=== PATIENT | male | born 1960 | race Two or more races ===

== ENCOUNTER 2021-05-21 13:18 | Inpatient (IN) | payer MEDICAID, OTHER ==
[~2021-05-21] VITALS: Ht 180.3 cm; Wt 77.6 kg
[2021-05-21 15:04] LABS: HEMATOCRIT. 41.3 % (42.0-52.0); HEMOGLOBIN. 13.9 g/dL (14.0-18.0); MEAN CORPUSCULAR HEMOGLOBIN 29.3 pg (28.0-32.0); MEAN CORPUSCULAR VOLUME 87.1 fL (80.0-94.0); MEAN PLATELET VOLUME 8.2 fl (7.4-10.4); RED BLOOD CELL COUNT 4.74 mill/uL (4.7-6.1); RED CELL DISTRIBUTION WIDTH 15.7 % (11.6-14.6)
[2021-05-21 15:10] LABS: CHLORIDE 106 mEq/L (98-107)
[2021-05-21 15:19] LABS: CREATINE KINASE 225 IU/L (39-308)
[2021-05-21 15:30] LABS: PLATELET 47 x1000/uL (130-400)
[2021-05-21] MEDS ORDERED: SODIUM CHLORIDE 0.9% 1,000 ML IV ONE (16:00)
[2021-05-21 19:20] LABS: PLATELET ESTIMATE MARKEDLY DECREASED
[2021-05-21] MEDS ORDERED: DEXTROSE 50% WATER 50ML SYRINGE IV PRN (21:15)
[2021-05-21] MEDS ORDERED: HYDROCODONE/ACETAMINOPHEN 5/325MG TABLET PO PRN (21:15)
[2021-05-21] MEDS ORDERED: ACETAMINOPHEN 325MG TABLET PO PRN ×2 (21:15)
[2021-05-21] MEDS ORDERED: GUAIFENESIN 200MG/10ML SUGAR FREE UDC PO PRN (21:15)
[2021-05-21] MEDS ORDERED: ONDANSETRON HCL 4MG/2ML INJ IV PRN (21:15)
[2021-05-21] MEDS ORDERED: CLONIDINE 0.1MG TABLET PO PRN (21:15)
[2021-05-21] MEDS ORDERED: MAGNESIUM/ALUMINUM HYDROXIDE/SIMETHICONE 30ML UDC PO PRN (21:15)
[2021-05-22] MEDS: LORAZEPAM 2MG/ML CPJ IV PRN ×2 (01:52→08:37)
[2021-05-22] MEDS: BLOOD SUGAR DIAGNOSTIC STRIP TEST SCH ×4 (06:19→20:48)
[2021-05-22 06:20] LABS: CHLORIDE 101 mEq/L (98-107)
[2021-05-22] MEDS: INSULIN LISPRO 100 UNITS/ML SUBCUT SCH ×4 (06:20→20:48)
[2021-05-22 06:26] LABS: HEMATOCRIT. 38.9 % (42.0-52.0); HEMOGLOBIN. 13.1 g/dL (14.0-18.0); MEAN CORPUSCULAR HEMOGLOBIN 29.5 pg (28.0-32.0); MEAN CORPUSCULAR VOLUME 87.8 fL (80.0-94.0); MEAN PLATELET VOLUME 8.8 fl (7.4-10.4); RED BLOOD CELL COUNT 4.43 mill/uL (4.7-6.1); RED CELL DISTRIBUTION WIDTH 15.9 % (11.6-14.6)
[2021-05-22 06:27] LABS: PHOSPHORUS 2.4 mg/dL (2.5-4.9)
[2021-05-22 06:28] LABS: TOTAL IRON BINDING CAPACITY 296 ug/dL (250-450)
[2021-05-22 06:30] LABS: PLATELET 41 x1000/uL (130-400)
[2021-05-22 07:13] LABS: FOLIC ACID (FOLATE) SERUM 9.5 ng/mL (>5.38)
[2021-05-22 10:33] LABS: PLATELET ESTIMATE MARKEDLY DECREASED
[2021-05-22] MEDS ORDERED: NALOXONE HCL 0.4MG/ML VIAL IV PRN (11:30)
[2021-05-22 11:34] VITALS: BP 139/78
[2021-05-22] MEDS ORDERED: ATOR10TA69 MT (11:43)
[2021-05-22] MEDS ORDERED: ASPI-1497 MT (11:43)
[2021-05-22] MEDS ORDERED: METF-414 MT (11:43)
[2021-05-22] MEDS ORDERED: POTASSIUM CHLORIDE 20MEQ TABLET SR PO SCH (12:15)
[2021-05-22 12:30] VITALS: BP 139/78
[2021-05-22 14:38] LABS: HEPATITIS B SURFACE AB 15.3 mIU/mL
[2021-05-22] MEDS ORDERED: POTASSIUM-SODIUM PHOSPHATE POWDER PACKET PO NR (15:00)
[2021-05-22] MEDS ORDERED: INFLUENZA VACCINE 05/PF 0.5 ML SYRINGE IM ONE (15:00)
[2021-05-22 15:45] LABS: *AMPHETAMINES SCREEN URINE NEGATIVE (NEGATIVE); *BARBITURATES SCREEN URINE NEGATIVE (NEGATIVE); *BENZODIAZEPINES SCREEN URINE NEGATIVE (NEGATIVE); *COCAINE SCREEN URINE NEGATIVE (NEGATIVE); CANNABINOID URINE SCREEN NEGATIVE (NEGATIVE); METHADONE URINE SCREEN NEGATIVE (NEGATIVE); OPIATES URINE SCREEN PRESUMTIVE POSITIVE (NEGATIVE); PHENCYCLIDINE URINE SCREEN NEGATIVE (NEGATIVE)
[2021-05-22] MEDS ORDERED: MAGNESIUM 2 G PREMIX 50 ML IV NR (16:00)
[2021-05-22] MEDS ORDERED: FOLIC ACID 1 MG, THIAMINE HCL 100 MG, MVI, ADULT NO.1 10 ML in DEXTROSE 5% WATER 1,000 ML IV SCH ×4 (16:00)
[2021-05-22] MEDS: PANTOPRAZOLE SODIUM 40 MG/VIAL IV SCH (18:34)
[2021-05-22 20:00] VITALS: BP 126/71
[2021-05-22] MEDS ORDERED: SODIUM CHLORIDE 0.9% 1,000 ML IV SCH (20:15)
[2021-05-23] VITALS: BP 122/81
[2021-05-23 04:00] VITALS: BP 115/70
[2021-05-23 06:49] LABS: INR 1.1; PROTHROMBIN TIME 12.1 sec (9.6-11.0)
[2021-05-23] MEDS: PANTOPRAZOLE SODIUM 40 MG/VIAL IV SCH ×2 (06:49→18:16)
[2021-05-23] MEDS: BLOOD SUGAR DIAGNOSTIC STRIP TEST SCH ×4 (06:49→21:00)
[2021-05-23 06:54] LABS: BASOPHILS % 2.9 % (0.0-2.0); HEMATOCRIT. 38.5 % (42.0-52.0); LYMPHOCYTES % 17.7 % (20.0-50.0); MEAN CORPUSCULAR HEMOGLOBIN 29.6 pg (28.0-32.0); MEAN CORPUSCULAR VOLUME 87.5 fL (80.0-94.0); MEAN PLATELET VOLUME 9.4 fl (7.4-10.4); NEUTROPHILS % 69.4 % (40.0-76.0); RED BLOOD CELL COUNT 4.39 mill/uL (4.7-6.1); RED CELL DISTRIBUTION WIDTH 15.4 % (11.6-14.6)
[2021-05-23 07:13] LABS: CHLORIDE 99 mEq/L (98-107)
[2021-05-23 07:32] LABS: PHOSPHORUS 0.8 mg/dL (2.5-4.9)
[2021-05-23 07:37] LABS: PLATELET 38 x1000/uL (130-400)
[2021-05-23 07:48] VITALS: BP 118/70
[2021-05-23] MEDS: INSULIN LISPRO 100 UNITS/ML SUBCUT SCH ×4 (07:50→21:00)
[2021-05-23] MEDS ORDERED: SODIUM PHOS,M-BASIC-D-BASIC 30 MM in DEXT 5% WATER 500 ML IV NR (09:00)
[2021-05-23] MEDS ORDERED: LOPERAMIDE HCL 2MG CAPSULE PO NR (09:30)
[2021-05-23] MEDS ORDERED: LOPERAMIDE HCL 2MG CAPSULE PO PRN (12:00)
[2021-05-23 12:22] VITALS: BP 112/75
[2021-05-23 15:40] VITALS: BP 123/82
[2021-05-23 20:00] VITALS: BP 129/90
[2021-05-24] VITALS: BP 125/87
[2021-05-24 04:00] VITALS: BP 139/88
[2021-05-24] MEDS: PANTOPRAZOLE SODIUM 40 MG/VIAL IV SCH ×2 (06:02→18:35)
[2021-05-24] MEDS: BLOOD SUGAR DIAGNOSTIC STRIP TEST SCH ×4 (06:23→20:55)
[2021-05-24] MEDS: INSULIN LISPRO 100 UNITS/ML SUBCUT SCH ×4 (07:50→20:55)
[2021-05-24 08:00] VITALS: BP 130/78
[2021-05-24 12:00] VITALS: BP 127/75
[2021-05-24] MEDS: LORAZEPAM 2MG/ML CPJ IV PRN ×2 (14:02→18:52)
[2021-05-24 16:00] VITALS: BP 131/77
[2021-05-24 17:48] LABS: BASOPHILS % 0.8 % (0.0-2.0); HEMATOCRIT. 38.9 % (42.0-52.0); HEMOGLOBIN. 13.4 g/dL (14.0-18.0); LYMPHOCYTES % 14.7 % (20.0-50.0); MEAN CORPUSCULAR HEMOGLOBIN 30.2 pg (28.0-32.0); MEAN CORPUSCULAR VOLUME 87.6 fL (80.0-94.0); MEAN PLATELET VOLUME 9.2 fl (7.4-10.4); NEUTROPHILS % 73.5 % (40.0-76.0); RED BLOOD CELL COUNT 4.44 mill/uL (4.7-6.1); RED CELL DISTRIBUTION WIDTH 15.4 % (11.6-14.6)
[2021-05-24 18:36] LABS: CHLORIDE 100 mEq/L (98-107)
[2021-05-24 18:42] LABS: PHOSPHORUS 2.2 mg/dL (2.5-4.9)
[2021-05-24 20:00] VITALS: BP 120/78
[2021-05-24] MEDS ORDERED: POTASSIUM CHLORIDE 20MEQ TABLET SR PO SCH (20:00)
[2021-05-24] MEDS ORDERED: LORAZEPAM 2MG/ML CPJ IV NR (20:14)
[2021-05-24] MEDS ORDERED: POTASSIUM CHLORIDE 20MEQ TABLET SR PO NR (20:15)
[2021-05-24] MEDS ORDERED: POTASSIUM CHLORIDE INJ 40 MEQ in DEXT 5% WATER 250 ML IV ONE (21:30)
[2021-05-24] MEDS ORDERED: MORPHINE SULFATE 2 MG/ML CPJ (NOT FOR IM USE) IV PRN (21:45)
[2021-05-24] MEDS ORDERED: HALOPERIDOL LACTATE 5MG/ML VIAL IM NR (22:30)
[2021-05-24] MEDS ORDERED: LORAZEPAM 2MG/ML CPJ IV PRN (22:30)
[2021-05-24] MEDS: KCL 20MEQ/100ML PREMIX 100 ML IV SCH (22:46)
[2021-05-24] MEDS ORDERED: DIAZEPAM 5 MG/ML 2ML CPJ IV NR (23:30)
[2021-05-24] MEDS ORDERED: DIAZEPAM 5 MG/ML 2ML CPJ IV PRN (23:45)
[2021-05-25] VITALS (7 sets, daily range): BP systolic 104–144; BP diastolic 65–87
[2021-05-25] MEDS ORDERED: POTASSIUM CHLORIDE 20MEQ TABLET SR PO NR
[2021-05-25] MEDS ORDERED: POTASSIUM CHLORIDE 20MEQ TABLET SR PO SCH
[2021-05-25] MEDS: KCL 20MEQ/100ML PREMIX 100 ML IV SCH (00:03)
[2021-05-25] MEDS ORDERED: POTASSIUM CHLORIDE INJ 40 MEQ in DEXT 5% WATER 250 ML IV ONE (01:30)
[2021-05-25] MEDS: PANTOPRAZOLE SODIUM 40 MG/VIAL IV SCH ×2 (05:30→19:47)
[2021-05-25] MEDS: BLOOD SUGAR DIAGNOSTIC STRIP TEST SCH ×4 (06:52→20:45)
[2021-05-25 07:03] LABS: BASOPHILS % 1.2 % (0.0-2.0); HEMATOCRIT. 38.7 % (42.0-52.0); HEMOGLOBIN. 13.4 g/dL (14.0-18.0); LYMPHOCYTES % 18.3 % (20.0-50.0); MEAN CORPUSCULAR HEMOGLOBIN 30.2 pg (28.0-32.0); MEAN CORPUSCULAR VOLUME 87.4 fL (80.0-94.0); MEAN PLATELET VOLUME 9.6 fl (7.4-10.4); MONOCYTES % 11.4 % (2.0-8.0); NEUTROPHILS % 66.1 % (40.0-76.0); PLATELET 52 x1000/uL (130-400); RED BLOOD CELL COUNT 4.43 mill/uL (4.7-6.1); RED CELL DISTRIBUTION WIDTH 15.6 % (11.6-14.6)
[2021-05-25 07:06] LABS: CHLORIDE 105 mEq/L (98-107)
[2021-05-25 07:09] LABS: INR 1.1; PROTHROMBIN TIME 11.4 sec (9.6-11.0)
[2021-05-25] MEDS: INSULIN LISPRO 100 UNITS/ML SUBCUT SCH ×4 (07:26→20:48)
[2021-05-25 09:59] LABS: PLATELET 42 x1000/uL (130-400)
[2021-05-25] MEDS: POTASSIUM CHLORIDE 20MEQ/PACKET PO SCH ×2 (10:15→13:30)
[2021-05-25 13:07] LABS: HIV SCREEN 4G Non Reactive (Non Reactive)
[2021-05-25] MEDS: DIAZEPAM 5 MG/ML 2ML CPJ IV PRN (19:48)
[2021-05-25 21:30] LABS: HEPATITIS B SURFACE ANTIGEN NEGATIVE
[2021-05-26 04:00] VITALS: BP 116/78
[2021-05-26] MEDS: PANTOPRAZOLE SODIUM 40 MG/VIAL IV SCH ×2 (05:21→17:33)
[2021-05-26 06:12] LABS: BASOPHILS % 2.7 % (0.0-2.0); EOSINOPHILS % 6.9 % (0.0-5.0); HEMATOCRIT. 37.7 % (42.0-52.0); HEMOGLOBIN. 12.9 g/dL (14.0-18.0); LYMPHOCYTES % 25.4 % (20.0-50.0); MEAN CORPUSCULAR HEMOGLOBIN 30.1 pg (28.0-32.0); MEAN CORPUSCULAR VOLUME 88.2 fL (80.0-94.0); MEAN PLATELET VOLUME 8.6 fl (7.4-10.4); MONOCYTES % 12.2 % (2.0-8.0); NEUTROPHILS % 52.8 % (40.0-76.0); PLATELET 69 x1000/uL (130-400); RED BLOOD CELL COUNT 4.28 mill/uL (4.7-6.1); RED CELL DISTRIBUTION WIDTH 15.7 % (11.6-14.6)
[2021-05-26 06:35] LABS: CHLORIDE 106 mEq/L (98-107)
[2021-05-26 06:43] LABS: PHOSPHORUS 2.8 mg/dL (2.5-4.9)
[2021-05-26] MEDS: BLOOD SUGAR DIAGNOSTIC STRIP TEST SCH ×4 (07:01→21:00)
[2021-05-26] MEDS: INSULIN LISPRO 100 UNITS/ML SUBCUT SCH ×4 (07:50→21:00)
[2021-05-26 08:00] VITALS: BP 127/86
[2021-05-26] MEDS ORDERED: THIAMINE HCL 100MG TABLET PO SCH (09:00)
[2021-05-26] MEDS ORDERED: FOLIC ACID 1MG TABLET PO SCH (09:00)
[2021-05-26] MEDS ORDERED: POTASSIUM CHLORIDE 20MEQ TABLET SR PO SCH (09:00)
[2021-05-26 12:00] VITALS: BP 120/77
[2021-05-26] MEDS: DIAZEPAM 5 MG/ML 2ML CPJ IV PRN (14:07)
[2021-05-26] MEDS ORDERED: IMOD PO (14:26)
[2021-05-26] MEDS ORDERED: ASPI-1497 MT (14:26)
[2021-05-26] MEDS ORDERED: THIA100T72 PO (14:26)
[2021-05-26] MEDS ORDERED: ATOR10TA69 MT (14:26)
[2021-05-26] MEDS ORDERED: FOLI-43 PO (14:26)
[2021-05-26] MEDS ORDERED: METF-414 MT (14:26)
[2021-05-26] MEDS ORDERED: TOPUD PO (14:27)
[2021-05-26 16:00] VITALS: BP 113/82
[2021-05-26 20:00] VITALS: BP 130/89
[2021-05-27] VITALS: BP 121/83
[2021-05-27 02:26] VITALS: BP 101/63
[2021-05-27 03:56] VITALS: BP 101/63
[2021-05-27] MEDS: PANTOPRAZOLE SODIUM 40 MG/VIAL IV SCH (05:25)
[2021-05-27] MEDS: BLOOD SUGAR DIAGNOSTIC STRIP TEST SCH (06:23)
== END 2021-05-27 10:17 | disposition home or self-care (01) | DRG 40 ==
LOC: ER 13:35 → EDBEDREQ 16:37 → MICUSO 20:18 → EDBEDREQ 20:31 → EDBEDREQTM 20:31 → SUPCPDRO 21:04 → 6WST 05-22 11:13
PROVIDERS: ADMIT Internal Medicine; ATTEND Internal Medicine
DX: G95.20 Unspecified cord compression (principal); D61.818 Other pancytopenia; E11.40 Type 2 diabetes mellitus with diabetic neuropathy, unspecified; I82.409 Acute embolism and thrombosis of unspecified deep veins of unspecified lower extremity; I10 Essential (primary) hypertension; F10.239 Alcohol dependence with withdrawal, unspecified; D50.9 Iron deficiency anemia, unspecified; G82.20 Paraplegia, unspecified; I99.8 Other disorder of circulatory system; K76.0 Fatty (change of) liver, not elsewhere classified; J32.0 Chronic maxillary sinusitis; M43.16 Spondylolisthesis, lumbar region; M48.061 Spinal stenosis, lumbar region without neurogenic claudication; Z20.822 Contact with and (suspected) exposure to COVID-19; K82.8 Other specified diseases of gallbladder; R19.7 Diarrhea, unspecified; R79.89 Other specified abnormal findings of blood chemistry; R26.2 Difficulty in walking, not elsewhere classified; Z59.02 Unsheltered homelessness; Z71.41 Alcohol abuse counseling and surveillance of alcoholic; Z79.82 Long term (current) use of aspirin; Z86.73 Personal history of transient ischemic attack (TIA), and cerebral infarction without residual deficits; Z23 Encounter for immunization
CPT/HCPCS: 36415; 72148; 74176; 76700; 80048; 80053; 80076; 80305; 80320; 82140; 82248; 82550; 82607; 82728; 82746; 82962; 83036; 83540; 83550; 83605; 83735; 84100; 84145; 84443; 84484; 85025; 85044; 85651; 86705; 86706; 86709; 86803; 87045; 87177; 87209; 87340; 87389; 87426; 87449; 87493; 93005; 93923; 93970; 97110; 97162; 97166; 97530; 99285; C9113; J1630; J1815; J2060; J3411; J3475; J3480; J3490; J7030; J7040; J7060; J7070; G0480

== ENCOUNTER 2021-08-16 11:50 | Emergency (ER) | payer MEDICAID, OTHER ==
[~2021-08-16] VITALS: Ht 170.2 cm; Wt 80.0 kg
[~2021-08-16 11:50] MED LIST: ASPI-1497 MT; ATOR10TA69 MT; FOLI-43 PO; IMOD PO; METF-414 MT; THIA100T72 PO; TOPUD PO
[2021-08-16 12:08] VITALS: BP 140/96
[2021-08-16] MEDS ORDERED: IBUPROFEN 400MG TABLET PO ONE (12:45)
== END 2021-08-16 17:08 | disposition home or self-care (01) ==
LOC: ER 12:38
DX: S62.011A Displaced fracture of distal pole of navicular [scaphoid] bone of right wrist, initial encounter for closed fracture (principal); S52.591A Other fractures of lower end of right radius, initial encounter for closed fracture; E11.9 Type 2 diabetes mellitus without complications; I10 Essential (primary) hypertension; W01.0XXA Fall on same level from slipping, tripping and stumbling without subsequent striking against object, initial encounter; Y93.01 Activity, walking, marching and hiking; Y92.410 Unspecified street and highway as the place of occurrence of the external cause; Z79.82 Long term (current) use of aspirin
CPT/HCPCS: 29125; 73030; 73060; 73070; 73090; 73110; 99284

== ENCOUNTER 2022-12-13 10:10 | Inpatient (IN) | payer OTHER, MEDICAID ==
[~2022-12-13] VITALS: Ht 177.8 cm; Wt 81.6 kg
[~2022-12-13 10:10] MED LIST changes: -ASPI-1497 MT; +GABA300C MT
[2022-12-13 11:59] LABS: BASOPHILS % 3.2 % (0.0-2.0); HEMATOCRIT. 43.2 % (42.0-52.0); HEMOGLOBIN. 14.9 g/dL (14.0-18.0); LYMPHOCYTES % 21.1 % (20.0-50.0); MEAN CORPUSCULAR HEMOGLOBIN 32.1 pg (28.0-32.0); MEAN CORPUSCULAR HGB CONC 34.5 g/dL (31.0-37.0); MEAN CORPUSCULAR VOLUME 92.8 fL (80.0-94.0); MEAN PLATELET VOLUME 9.5 fl (7.4-10.4); MONOCYTES % 11.6 % (2.0-8.0); NEUTROPHILS % 63.1 % (40.0-76.0); PLATELET 78 x1000/uL (130-400); RED BLOOD CELL COUNT 4.65 mill/uL (4.7-6.1); RED CELL DISTRIBUTION WIDTH 12.9 % (11.6-14.6); WHITE BLOOD COUNT 4.4 x1000/uL (4.5-11.0)
[2022-12-13 12:21] LABS: CHLORIDE 100 mEq/L (98-107); INDEX HEMOLYSI 1 (1-3); INDEX ICTERIC 2 (1-4); INDEX LIPEMIC 1 (1-3); POTASSIUM 2.9 mEq/L (3.5-5.1); SODIUM 136 mEq/L (136-145)
[2022-12-13 12:36] LABS: ALANINE AMINOTRANSFERASE 103 IU/L (13-61); ALBUMIN 3.5 g/dL (3.4-5.0); ASPARTATE AMINOTRANSFERASE 151 IU/L (15-37); BILIRUBIN TOTAL 2.1 mg/dL (0.1-1.0); CALCIUM 8.6 mg/dL (8.5-10.1); CARBON DIOXIDE 25 mEq/L (21-32); CREATINE KINASE 252 IU/L (39-308); CREATININE 0.5 mg/dL (0.6-1.3); ETHANOL BLOOD 244 mg/dL (<10); GLUCOSE 342 mg/dL (70-105); PROTEIN TOTAL 7.6 g/dL (6.0-8.3); TROPONIN I HIGH SENSITIVITY 8 ng/L (<78); UREA NITROGEN BLOOD 6 mg/dL (7-21)
[2022-12-13] MEDS ORDERED: POTASSIUM CHLORIDE 20MEQ TABLET SR PO NR (12:45)
[2022-12-13] MEDS ORDERED: SODIUM CHLORIDE 0.9% 1,000 ML IV ONE (13:30)
[2022-12-13] MEDS ORDERED: MORPHINE SULFATE 4 MG/ML CPJ (NOT FOR IM USE) IV ONE (13:30)
[2022-12-13 14:19] LABS: AMMONIA 21 uMol/L (<32)
[2022-12-13 15:30] LABS: TROPONIN I HIGH SENSITIVITY 8 ng/L (<78)
[2022-12-13 21:00] VITALS: BP 141/76; PULSE 79; RESP 18; TEMP 96.6
[2022-12-13 21:35] VITALS: BP 129/93; PULSE 103; RESP 20; TEMP 97
[2022-12-13 23:35] VITALS: BP 129/93; PULSE 103; RESP 20; TEMP 97
[2022-12-14] VITALS: BP 125/78; PULSE 89; RESP 18; TEMP 96.1
[2022-12-14] MEDS ORDERED: MORPHINE SULFATE 2 MG/ML CPJ (NOT FOR IM USE) IV PRN (00:30)
[2022-12-14] MEDS ORDERED: ONDANSETRON HCL 4MG/2ML INJ IV PRN (00:30)
[2022-12-14] MEDS ORDERED: DEXTROSE 50% WATER 50ML SYRINGE IV PRN ×3 (00:30→11:30)
[2022-12-14] MEDS ORDERED: INSULIN LISPRO 100 UNITS/ML SUBCUT STA (00:49)
[2022-12-14] MEDS ORDERED: NALOXONE HCL 0.4MG/ML VIAL IV PRN (01:00)
[2022-12-14 04:00] VITALS: BP 123/88; PULSE 101; RESP 17; TEMP 96.7
[2022-12-14] MEDS: SODIUM CHL 0.45% + KCL 20MEQ/L 1,000 ML IV SCH ×3 (04:34→14:42)
[2022-12-14 06:56] LABS: BASOPHILS % 1.5 % (0.0-2.0); EOSINOPHILS % 0.7 % (0.0-5.0); HEMATOCRIT. 44.3 % (42.0-52.0); HEMOGLOBIN. 15.2 g/dL (14.0-18.0); LYMPHOCYTES % 15.5 % (20.0-50.0); MEAN CORPUSCULAR HEMOGLOBIN 31.6 pg (28.0-32.0); MEAN CORPUSCULAR HGB CONC 34.3 g/dL (31.0-37.0); MEAN CORPUSCULAR VOLUME 92.2 fL (80.0-94.0); MEAN PLATELET VOLUME 9.6 fl (7.4-10.4); MONOCYTES % 12.1 % (2.0-8.0); NEUTROPHILS % 70.2 % (40.0-76.0); PLATELET 74 x1000/uL (130-400); RED BLOOD CELL COUNT 4.81 mill/uL (4.7-6.1); RED CELL DISTRIBUTION WIDTH 12.9 % (11.6-14.6); WHITE BLOOD COUNT 4.1 x1000/uL (4.5-11.0)
[2022-12-14] MEDS: BLOOD SUGAR DIAGNOSTIC STRIP TEST SCH ×4 (07:14→21:00)
[2022-12-14] MEDS ORDERED: INSULIN LISPRO 100 UNITS/ML SUBCUT SCH (07:40)
[2022-12-14 08:00] VITALS: BP 118/83; PULSE 80; RESP 18; TEMP 97.7
[2022-12-14] MEDS: PANTOPRAZOLE SODIUM 40 MG/VIAL IV SCH (08:18)
[2022-12-14 08:59] LABS: CHLORIDE 102 mEq/L (98-107); INDEX HEMOLYSI 1 (1-3); INDEX ICTERIC 2 (1-4); INDEX LIPEMIC 1 (1-3); SODIUM 139 mEq/L (136-145)
[2022-12-14] MEDS: CHLORDIAZEPOXIDE 25MG CAPSULE PO SCH ×3 (09:06→21:47)
[2022-12-14 09:09] LABS: CALCIUM 9.2 mg/dL (8.5-10.1); CARBON DIOXIDE 24 mEq/L (21-32); CREATININE 0.4 mg/dL (0.6-1.3); GLUCOSE 179 mg/dL (70-105); UREA NITROGEN BLOOD 8 mg/dL (7-21)
[2022-12-14] MEDS ORDERED: POTASSIUM CHLORIDE 20MEQ TABLET SR PO NR (10:00)
[2022-12-14] MEDS ORDERED: LORAZEPAM 2MG/ML CPJ IV PRN (10:00)
[2022-12-14] MEDS: INSULIN LISPRO 100 UNITS/ML SUBCUT SCH ×3 (11:49→21:47)
[2022-12-14 12:00] VITALS: BP 117/81; PULSE 87; RESP 20; TEMP 98.1
[2022-12-14 16:00] VITALS: BP 101/68; PULSE 89; RESP 20; TEMP 98.5
[2022-12-14 20:00] VITALS: BP 110/77; PULSE 84; RESP 20; TEMP 96.1
[2022-12-15] VITALS: BP 101/74; PULSE 55; RESP 20; TEMP 97
[2022-12-15] MEDS: SODIUM CHL 0.45% + KCL 20MEQ/L 1,000 ML IV SCH ×3 (00:48→15:44)
[2022-12-15 04:00] VITALS: BP 132/85; PULSE 59; RESP 20; TEMP 97
[2022-12-15] MEDS: BLOOD SUGAR DIAGNOSTIC STRIP TEST SCH ×4 (06:17→20:40)
[2022-12-15] MEDS: CHLORDIAZEPOXIDE 25MG CAPSULE PO SCH ×3 (06:43→20:54)
[2022-12-15] MEDS: INSULIN LISPRO 100 UNITS/ML SUBCUT SCH ×4 (06:43→20:54)
[2022-12-15 08:00] VITALS: BP_SYST 104; BP_SYST 118; BP_DIAS 74; BP_DIAS 78; PULSE 115; PULSE 76; RESP 18; TEMP 97.8; TEMP 98.1
[2022-12-15] MEDS: PANTOPRAZOLE SODIUM 40 MG/VIAL IV SCH (08:37)
[2022-12-15 12:00] VITALS: BP 118/76; PULSE 76; RESP 18; TEMP 98.1
[2022-12-15 16:00] VITALS: BP 114/80; PULSE 82; RESP 18; TEMP 97.1
[2022-12-15 20:00] VITALS: BP 123/91; PULSE 78; RESP 18; TEMP 97.2
[2022-12-16 00:27] VITALS: BP 118/85; PULSE 77; RESP 17; TEMP 97.2
[2022-12-16] MEDS: SODIUM CHL 0.45% + KCL 20MEQ/L 1,000 ML IV SCH ×4 (01:01→23:47)
[2022-12-16 04:00] VITALS: BP 135/96; PULSE 90; RESP 19; TEMP 97.4
[2022-12-16] MEDS: BLOOD SUGAR DIAGNOSTIC STRIP TEST SCH ×4 (06:29→20:44)
[2022-12-16] MEDS: CHLORDIAZEPOXIDE 25MG CAPSULE PO SCH ×3 (06:51→20:47)
[2022-12-16] MEDS: INSULIN LISPRO 100 UNITS/ML SUBCUT SCH ×4 (06:52→20:48)
[2022-12-16 08:00] VITALS: BP 114/84; PULSE 79; RESP 18; TEMP 97.9
[2022-12-16] MEDS: PANTOPRAZOLE SODIUM 40 MG/VIAL IV SCH (09:24)
[2022-12-16 12:00] VITALS: BP 130/89; PULSE 81; RESP 18; TEMP 98.2
[2022-12-16 16:00] VITALS: BP 124/86; PULSE 77; RESP 18; TEMP 97.6
[2022-12-16 20:00] VITALS: BP 107/79; PULSE 78; RESP 16; TEMP 96.9
[2022-12-17] VITALS: BP 132/85; PULSE 63; RESP 16; TEMP 97.1
[2022-12-17 04:00] VITALS: BP 137/90; PULSE 72; RESP 16; TEMP 97.1
[2022-12-17] MEDS: CHLORDIAZEPOXIDE 25MG CAPSULE PO SCH ×3 (06:00→21:31)
[2022-12-17] MEDS: BLOOD SUGAR DIAGNOSTIC STRIP TEST SCH ×4 (06:20→21:00)
[2022-12-17] MEDS: INSULIN LISPRO 100 UNITS/ML SUBCUT SCH ×4 (06:42→21:43)
[2022-12-17 07:00] LABS: BASOPHILS % 1.9 % (0.0-2.0); EOSINOPHILS % 5.1 % (0.0-5.0); HEMATOCRIT. 45.1 % (42.0-52.0); HEMOGLOBIN. 15.3 g/dL (14.0-18.0); LYMPHOCYTES % 20.1 % (20.0-50.0); MEAN CORPUSCULAR HGB CONC 33.9 g/dL (31.0-37.0); MEAN CORPUSCULAR VOLUME 94.3 fL (80.0-94.0); MEAN PLATELET VOLUME 9.5 fl (7.4-10.4); MONOCYTES % 12.5 % (2.0-8.0); NEUTROPHILS % 60.4 % (40.0-76.0); PLATELET 81 x1000/uL (130-400); RED BLOOD CELL COUNT 4.79 mill/uL (4.7-6.1); RED CELL DISTRIBUTION WIDTH 12.9 % (11.6-14.6); WHITE BLOOD COUNT 3.1 x1000/uL (4.5-11.0)
[2022-12-17 07:26] LABS: CHLORIDE 109 mEq/L (98-107); INDEX HEMOLYSI 4 (1-3); INDEX ICTERIC 1 (1-4); INDEX LIPEMIC 1 (1-3); SODIUM 137 mEq/L (136-145)
[2022-12-17 07:39] LABS: ALANINE AMINOTRANSFERASE 100 IU/L (13-61); ALBUMIN 2.9 g/dL (3.4-5.0); ASPARTATE AMINOTRANSFERASE 116 IU/L (15-37); BILIRUBIN DIRECT 0.4 mg/dL (0.0-0.2); BILIRUBIN TOTAL 2.2 mg/dL (0.1-1.0); CALCIUM 8.8 mg/dL (8.5-10.1); CARBON DIOXIDE 23 mEq/L (21-32); CREATININE 0.4 mg/dL (0.6-1.3); GLUCOSE 160 mg/dL (70-105); PROTEIN TOTAL 6.9 g/dL (6.0-8.3); UREA NITROGEN BLOOD 5 mg/dL (7-21)
[2022-12-17 07:44] LABS: POTASSIUM 4.7 mEq/L (3.5-5.1)
[2022-12-17 08:00] VITALS: BP 137/93; PULSE 87; RESP 18; TEMP 98
[2022-12-17] MEDS: SODIUM CHL 0.45% + KCL 20MEQ/L 1,000 ML IV SCH ×2 (08:50→17:02)
[2022-12-17] MEDS: PANTOPRAZOLE SODIUM 40 MG/VIAL IV SCH (08:50)
[2022-12-17] MEDS: METOPROLOL TARTRATE 25MG TABLET PO SCH ×2 (11:29→21:31)
[2022-12-17 12:00] VITALS: BP 101/72; PULSE 93; RESP 18; TEMP 97.9
[2022-12-17 16:00] VITALS: BP 108/76; PULSE 79; RESP 18; TEMP 96.8
[2022-12-17 20:00] VITALS: BP 131/87; PULSE 81; RESP 16; TEMP 96.9
[2022-12-18] VITALS: BP 132/98; PULSE 73; RESP 18; TEMP 96.9
[2022-12-18] MEDS: SODIUM CHL 0.45% + KCL 20MEQ/L 1,000 ML IV SCH ×2 (00:35→08:39)
[2022-12-18 04:00] VITALS: BP 115/72; PULSE 70; RESP 18; TEMP 97.1
[2022-12-18] MEDS: CHLORDIAZEPOXIDE 25MG CAPSULE PO SCH ×2 (06:33→13:44)
[2022-12-18] MEDS: BLOOD SUGAR DIAGNOSTIC STRIP TEST SCH ×2 (06:35→12:40)
[2022-12-18] MEDS: INSULIN LISPRO 100 UNITS/ML SUBCUT SCH ×2 (06:42→13:30)
[2022-12-18 07:07] LABS: ALBUMIN 2.6 g/dL (3.4-5.0); BILIRUBIN DIRECT 0.6 mg/dL (0.0-0.2); BILIRUBIN TOTAL 1.7 mg/dL (0.1-1.0); PROTEIN TOTAL 6.1 g/dL (6.0-8.3)
[2022-12-18 08:00] VITALS: BP 104/71; PULSE 78; RESP 18; TEMP 97.9
[2022-12-18] MEDS: PANTOPRAZOLE SODIUM 40 MG/VIAL IV SCH (08:39)
[2022-12-18] MEDS: METOPROLOL TARTRATE 25MG TABLET PO SCH (08:40)
[2022-12-18 12:00] VITALS: BP 111/75; PULSE 81; RESP 18; TEMP 98.3
[2022-12-18 15:30] VITALS: BP 114/77; PULSE 87; TEMP 98; O2SAT 99
[2022-12-18 16:00] VITALS: BP 117/70; PULSE 74; RESP 18; TEMP 97.9
[2022-12-18] MEDS ORDERED: METO25TA6 MT (19:49)
== END 2022-12-18 17:05 | disposition home or self-care (01) | DRG 439 ==
LOC: ER 10:10 → EDBEDREQ 15:30 → UNDOADMIN 21:16 → 8WST 21:16
PROVIDERS: ADMIT Internal Medicine; ATTEND Internal Medicine
DX: K85.90 Acute pancreatitis without necrosis or infection, unspecified (principal); F10.239 Alcohol dependence with withdrawal, unspecified; F10.229 Alcohol dependence with intoxication, unspecified; E11.9 Type 2 diabetes mellitus without complications; D69.6 Thrombocytopenia, unspecified; D72.819 Decreased white blood cell count, unspecified; E87.6 Hypokalemia; G62.9 Polyneuropathy, unspecified; R74.01 Elevation of levels of liver transaminase levels; Z86.73 Personal history of transient ischemic attack (TIA), and cerebral infarction without residual deficits; Z79.899 Other long term (current) drug therapy; Y90.8 Blood alcohol level of 240 mg/100 ml or more
CPT/HCPCS: 36415; 71045; 76700; 80048; 80053; 80076; 80320; 82140; 82550; 82962; 83036; 84443; 84484; 85025; 87015; 87045; 87427; 87449; 93005; 93306; 97162; 99285; C9113; J1815; J2270; J3480; J7030; G0480

== ENCOUNTER 2023-11-19 09:42 | Inpatient (IN) | payer MEDICARE, MEDICAID ==
[~2023-11-19] VITALS: Ht 165.1 cm; Wt 79.4 kg
[~2023-11-19 09:42] MED LIST changes: +METO25TA6 MT
[2023-11-19] MEDS ORDERED: FOLIC ACID 1 MG, THIAMINE HCL 100 MG, MVI, ADULT NO.1 10 ML in DEXTROSE 5% WATER 1,000 ML IV ONE (10:00)
[2023-11-19 10:12] LABS: EOSINOPHILS % 2.2 % (0.0-5.0); HEMATOCRIT. 34.9 % (42.0-52.0); HEMOGLOBIN. 11.8 g/dL (14.0-18.0); LYMPHOCYTES % 41.6 % (20.0-50.0); MEAN CORPUSCULAR HEMOGLOBIN 29.4 pg (28.0-32.0); MEAN CORPUSCULAR HGB CONC 33.8 g/dL (31.0-37.0); MEAN PLATELET VOLUME 8.2 fl (7.4-10.4); NEUTROPHILS % 48.2 % (40.0-76.0); PLATELET 64 x1000/uL (130-400); RED BLOOD CELL COUNT 4.02 mill/uL (4.7-6.1); RED CELL DISTRIBUTION WIDTH 16.3 % (11.6-14.6); WHITE BLOOD COUNT 3.7 x1000/uL (4.5-11.0)
[2023-11-19 10:20] LABS: CHLORIDE 110 mEq/L (98-107); POTASSIUM 2.9 mEq/L (3.5-5.1); SODIUM 143 mEq/L (136-145)
[2023-11-19 10:21] LABS: CALCIUM 8.5 mg/dL (8.7-10.4); CARBON DIOXIDE 25 mEq/L (21-32)
[2023-11-19 10:26] LABS: CREATININE 0.6 mg/dL (0.6-1.3); GLUCOSE 153 mg/dL (70-105); UREA NITROGEN BLOOD 7 mg/dL (9-23)
[2023-11-19 12:00] VITALS: BP 158/100; PULSE 64; RESP 19; TEMP 35.94732; O2SAT 99
[2023-11-19] MEDS: FOLIC ACID 1 MG, THIAMINE HCL 100 MG, MVI, ADULT NO.1 10 ML in DEXTROSE 5% WATER 1,000 ML IV NR (12:02)
[2023-11-19] MEDS ORDERED: MVI, ADULT NO.1 10 ML, FOLIC ACID 1 MG, THIAMINE HCL 100 MG in SODIUM CHLORIDE 0.9% 1,0... IV SCH (14:00)
[2023-11-19] MEDS ORDERED: LORAZEPAM 0.5MG TABLET PO PRN (14:00)
[2023-11-19] MEDS ORDERED: ONDANSETRON HCL 4MG/2ML INJ IV PRN (14:00)
[2023-11-19] MEDS ORDERED: IPRATROPIUM/ALBUTEROL 0.5-3(2.5)MG/3ML NEB HHN PRN (14:00)
[2023-11-19] MEDS ORDERED: ACETAMINOPHEN 325MG TABLET PO PRN (14:00)
[2023-11-19] MEDS: MAGNESIUM 2 G PREMIX 50 ML IV NR (16:15)
[2023-11-19] MEDS: POTASSIUM CHLORIDE 20MEQ TABLET SR PO NR (16:15)
[2023-11-19 16:56] LABS: *AMPHETAMINES SCREEN URINE NEGATIVE (NEGATIVE); *BARBITURATES SCREEN URINE NEGATIVE (NEGATIVE); *BENZODIAZEPINES SCREEN URINE NEGATIVE (NEGATIVE); *COCAINE SCREEN URINE NEGATIVE (NEGATIVE)
[2023-11-19 16:57] LABS: CANNABINOID URINE SCREEN NEGATIVE (NEGATIVE); ECSTASY MDMA SCREEN URINE NEGATIVE (NEGATIVE); METHADONE URINE SCREEN NEGATIVE (NEGATIVE); OPIATES URINE SCREEN NEGATIVE (NEGATIVE); PHENCYCLIDINE URINE SCREEN NEGATIVE (NEGATIVE)
[2023-11-19] MEDS: LORAZEPAM 2MG/ML INJ IV PRN (17:22)
[2023-11-19 19:07] VITALS: BP 126/75; PULSE 79; RESP 18; TEMP 36.5292
[2023-11-20] VITALS: BP 155/96; PULSE 80; RESP 18; TEMP 36.78072; O2SAT 96
[2023-11-20] MEDS: ACETAMINOPHEN 325MG TABLET PO PRN (00:23)
[2023-11-20 04:00] VITALS: BP 149/90; PULSE 78; RESP 18; TEMP 36.55848; O2SAT 97
[2023-11-20 07:15] LABS: CHLORIDE 108 mEq/L (98-107); POTASSIUM 3.5 mEq/L (3.5-5.1); SODIUM 143 mEq/L (136-145)
[2023-11-20 07:16] LABS: CALCIUM 9.4 mg/dL (8.7-10.4); CARBON DIOXIDE 27 mEq/L (21-32)
[2023-11-20 07:21] LABS: CREATININE 0.5 mg/dL (0.6-1.3); GLUCOSE 104 mg/dL (70-105); UREA NITROGEN BLOOD 7 mg/dL (9-23)
[2023-11-20 07:22] LABS: ALANINE AMINOTRANSFERASE 8 IU/L (10-49); ASPARTATE AMINOTRANSFERASE 32 IU/L (<34)
[2023-11-20 07:23] LABS: ALBUMIN 4.3 g/dL (3.2-4.8); BILIRUBIN TOTAL 1.7 mg/dL (0.1-1.0); PROTEIN TOTAL 7.1 g/dL (6.0-8.3)
[2023-11-20 07:39] LABS: HEMOGLOBIN. 12.2 g/dL (14.0-18.0); MEAN PLATELET VOLUME 8.8 fl (7.4-10.4)
[2023-11-20 07:43] LABS: BASOPHILS % 1.4 % (0.0-2.0); EOSINOPHILS % 3.1 % (0.0-5.0); HEMATOCRIT. 35.5 % (42.0-52.0); LYMPHOCYTES % 36.5 % (20.0-50.0); MEAN CORPUSCULAR HEMOGLOBIN 29.4 pg (28.0-32.0); MEAN CORPUSCULAR HGB CONC 34.4 g/dL (31.0-37.0); MEAN CORPUSCULAR VOLUME 85.4 fL (80.0-94.0); MONOCYTES % 10.6 % (2.0-8.0); NEUTROPHILS % 48.4 % (40.0-76.0); PLATELET 57 x1000/uL (130-400); RED BLOOD CELL COUNT 4.15 mill/uL (4.7-6.1); RED CELL DISTRIBUTION WIDTH 16.2 % (11.6-14.6); WHITE BLOOD COUNT 2.5 x1000/uL (4.5-11.0)
[2023-11-20 08:00] VITALS: BP 174/93; PULSE 69; RESP 18; TEMP 36.33624; O2SAT 96
[2023-11-20] MEDS: THIAMINE HCL 100MG TABLET PO SCH (08:23)
[2023-11-20] MEDS: MULTIVITAMINS,THER W-MINERALS TABLET PO SCH (08:23)
[2023-11-20] MEDS: FOLIC ACID 1MG TABLET PO SCH (08:23)
[2023-11-20] MEDS: CLONIDINE 0.1MG TABLET PO PRN (08:25)
[2023-11-20] MEDS ORDERED: LORAZEPAM 2MG/ML INJ IV PRN (10:45)
[2023-11-20 12:00] VITALS: BP 171/90; PULSE 64; RESP 19; TEMP 36.61404; O2SAT 99
[2023-11-20 13:34] LABS: AMMONIA 29 uMol/L (<32)
[2023-11-20] MEDS: CHLORDIAZEPOXIDE 25MG CAPSULE PO SCH (15:35)
[2023-11-20 16:00] VITALS: BP 172/96; PULSE 66; RESP 18; TEMP 36.72516; O2SAT 98
[2023-11-20] MEDS: AMLODIPINE 5MG TABLET PO SCH (16:06)
[2023-11-20 20:00] VITALS: BP 153/88; PULSE 67; RESP 20; TEMP 36.55848; O2SAT 95
[2023-11-21] VITALS: BP 143/91; PULSE 70; RESP 20; TEMP 36.22512; O2SAT 97
[2023-11-21 04:00] VITALS: BP 130/86; PULSE 82; RESP 20; TEMP 36.44736; O2SAT 97
[2023-11-21 06:36] LABS: CHLORIDE 105 mEq/L (98-107); POTASSIUM 3.3 mEq/L (3.5-5.1); SODIUM 138 mEq/L (136-145)
[2023-11-21 06:37] LABS: CALCIUM 9.5 mg/dL (8.7-10.4); CARBON DIOXIDE 27 mEq/L (21-32)
[2023-11-21 06:42] LABS: BASOPHILS % 0.9 % (0.0-2.0); CREATININE 0.5 mg/dL (0.6-1.3); EOSINOPHILS % 6.1 % (0.0-5.0); GLUCOSE 108 mg/dL (70-105); HEMATOCRIT. 36.6 % (42.0-52.0); HEMOGLOBIN. 12.5 g/dL (14.0-18.0); LYMPHOCYTES % 37.6 % (20.0-50.0); MEAN CORPUSCULAR HEMOGLOBIN 29.4 pg (28.0-32.0); MEAN CORPUSCULAR HGB CONC 34.1 g/dL (31.0-37.0); MEAN CORPUSCULAR VOLUME 86.3 fL (80.0-94.0); MEAN PLATELET VOLUME 9.1 fl (7.4-10.4); MONOCYTES % 8.4 % (2.0-8.0); RED BLOOD CELL COUNT 4.24 mill/uL (4.7-6.1); RED CELL DISTRIBUTION WIDTH 15.8 % (11.6-14.6); UREA NITROGEN BLOOD 6 mg/dL (9-23); WHITE BLOOD COUNT 2.5 x1000/uL (4.5-11.0)
[2023-11-21 06:44] LABS: ALANINE AMINOTRANSFERASE < 7 IU/L (10-49); ALBUMIN 3.9 g/dL (3.2-4.8); ASPARTATE AMINOTRANSFERASE 27 IU/L (<34); BILIRUBIN TOTAL 2.7 mg/dL (0.1-1.0); PROTEIN TOTAL 6.9 g/dL (6.0-8.3)
[2023-11-21 06:45] LABS: DIFFERENTIAL COMMENT 1
[2023-11-21 06:47] LABS: PLATELET 50 x1000/uL (130-400)
[2023-11-21 06:48] LABS: ADD RBC MORPHOLOGY YES
[2023-11-21 08:00] VITALS: BP 139/93; PULSE 76; RESP 19; TEMP 36.78072; O2SAT 98
[2023-11-21 11:09] LABS: TROPONIN I HIGH SENSITIVITY 5 ng/L (3.0-53)
[2023-11-21 12:00] VITALS: BP 139/98; PULSE 83; RESP 18; TEMP 36.61404; O2SAT 98
[2023-11-21 16:00] VITALS: BP 125/88; PULSE 93; RESP 18; TEMP 36.50292; O2SAT 97
[2023-11-21 16:18] LABS: PLATELET ESTIMATE MARKEDLY DECREASED
[2023-11-21 17:17] LABS: AMMONIA < 17 uMol/L (<32)
[2023-11-21 20:01] VITALS: BP 129/84; PULSE 80; RESP 19; TEMP 36.55848; O2SAT 100
[2023-11-22 06:59] LABS: CHLORIDE 106 mEq/L (98-107); POTASSIUM 3.5 mEq/L (3.5-5.1); SODIUM 139 mEq/L (136-145)
[2023-11-22 07:00] LABS: CARBON DIOXIDE 24 mEq/L (21-32)
[2023-11-22 07:01] LABS: CALCIUM 9.2 mg/dL (8.7-10.4)
[2023-11-22 07:05] LABS: CREATININE 0.6 mg/dL (0.6-1.3); GLUCOSE 118 mg/dL (70-105)
[2023-11-22 07:06] LABS: UREA NITROGEN BLOOD 12 mg/dL (9-23)
[2023-11-22 07:07] LABS: ALANINE AMINOTRANSFERASE 8 IU/L (10-49); ALBUMIN 3.8 g/dL (3.2-4.8); ASPARTATE AMINOTRANSFERASE 24 IU/L (<34)
[2023-11-22 07:08] LABS: BILIRUBIN TOTAL 1.3 mg/dL (0.1-1.0); PROTEIN TOTAL 6.7 g/dL (6.0-8.3)
[2023-11-22 07:14] LABS: HEMATOCRIT. 36.1 % (42.0-52.0); HEMOGLOBIN. 12.2 g/dL (14.0-18.0); LYMPHOCYTES % 32.8 % (20.0-50.0); MEAN CORPUSCULAR HEMOGLOBIN 29.2 pg (28.0-32.0); MEAN CORPUSCULAR HGB CONC 33.8 g/dL (31.0-37.0); MEAN CORPUSCULAR VOLUME 86.5 fL (80.0-94.0); MEAN PLATELET VOLUME 9.4 fl (7.4-10.4); MONOCYTES % 8.9 % (2.0-8.0); NEUTROPHILS % 51.3 % (40.0-76.0); PLATELET 53 x1000/uL (130-400); RED BLOOD CELL COUNT 4.18 mill/uL (4.7-6.1); RED CELL DISTRIBUTION WIDTH 15.7 % (11.6-14.6); WHITE BLOOD COUNT 3.3 x1000/uL (4.5-11.0)
[2023-11-22 12:00] VITALS: BP 117/82; PULSE 92; RESP 19; TEMP 37.00296; O2SAT 99
[2023-11-22 16:00] VITALS: BP 126/82; PULSE 89; RESP 20; TEMP 36.44736; O2SAT 97
[2023-11-22 20:00] VITALS: BP 128/84; PULSE 85; RESP 18; TEMP 36.55848; O2SAT 99
[2023-11-23] VITALS: BP 116/70; PULSE 72; RESP 18; TEMP 36.6696; O2SAT 97
[2023-11-23 04:00] VITALS: BP 107/53; PULSE 89; RESP 18; TEMP 37.11408; O2SAT 100
[2023-11-23 12:00] VITALS: BP 126/86; PULSE 83; RESP 20; TEMP 36.6696; O2SAT 99
[2023-11-23 16:00] VITALS: BP 123/82; PULSE 90; RESP 20; TEMP 36.44736; O2SAT 99
[2023-11-24 08:00] VITALS: BP 134/76; PULSE 92; RESP 19; TEMP 36.55848; O2SAT 98
[2023-11-24 12:00] VITALS: BP 113/76; PULSE 87; RESP 20; TEMP 36.61404; O2SAT 95
[2023-11-24 16:00] VITALS: BP 114/83; PULSE 83; RESP 18; TEMP 36.61404; O2SAT 99
[2023-11-24 20:00] VITALS: BP 129/56; PULSE 55; RESP 20; TEMP 36.72516; O2SAT 100
[2023-11-25 08:00] VITALS: BP 125/79; PULSE 80; RESP 17; TEMP 36.61404; O2SAT 97
[2023-11-25 12:00] VITALS: BP 103/71; PULSE 99; RESP 17; TEMP 36.72516; O2SAT 96
[2023-11-25 20:00] VITALS: BP 129/81; PULSE 74; RESP 20; TEMP 36.22512; O2SAT 99
[2023-11-26] VITALS (7 sets, daily range): BP systolic 98–153; BP diastolic 63–86; PULSE 74–97; RESP 18–20; TEMP 36.33624–37.28076; O2SAT 95–100
[2023-11-27] VITALS: BP 132/80; PULSE 72; RESP 20; TEMP 36.22512; O2SAT 96
[2023-11-27 04:00] VITALS: BP 137/80; PULSE 68; RESP 20; TEMP 36.50292; O2SAT 96
[2023-11-27 08:00] VITALS: BP 133/82; PULSE 85; RESP 19; TEMP 36.114; O2SAT 98
[2023-11-27 16:00] VITALS: BP 138/83; PULSE 73; RESP 19; TEMP 36.28068; O2SAT 99
[2023-11-27 20:00] VITALS: BP 138/93; PULSE 93; RESP 20; TEMP 36.28068; O2SAT 98
[2023-11-28] VITALS: BP 134/85; PULSE 82; RESP 20; TEMP 36.33624; O2SAT 95
[2023-11-28 04:00] VITALS: BP 133/77; PULSE 78; RESP 20; TEMP 36.33624; O2SAT 95
== END 2023-11-28 09:45 | DRG 896 ==
LOC: ER 09:42 → 6EST 10:34 → EDBEDREQTM 10:36 → EDBEDREQ 10:36
PROVIDERS: ADMIT Family Medicine Adult Medicine; ATTEND Family Medicine Adult Medicine
DX: F10.129 Alcohol abuse with intoxication, unspecified (principal); G92.8 Other toxic encephalopathy; F10.139 Alcohol abuse with withdrawal, unspecified; E87.6 Hypokalemia; I10 Essential (primary) hypertension; E11.9 Type 2 diabetes mellitus without complications; D64.9 Anemia, unspecified; E83.42 Hypomagnesemia; E80.6 Other disorders of bilirubin metabolism; Z79.899 Other long term (current) drug therapy
CPT/HCPCS: 36415; 80048; 80053; 80305; 82140; 83735; 84484; 85025; 93005; 97162; 97166; 99285; J2060; J3411; J3475; J3490; J7070